=== PATIENT | male | born 1940 | race Caucasian/White ===

== ENCOUNTER → 2016-10-28 | Outpatient (CLI) | payer MEDICARE | LOC: CARL-LAB 08:52 | DX: I48.91 Unspecified atrial fibrillation (principal) ==

== ENCOUNTER → 2016-12-01 | Outpatient (CLI) | payer MEDICARE | LOC: CARL-LAB 07:37 | DX: I48.91 Unspecified atrial fibrillation (principal); Z79.01 Long term (current) use of anticoagulants; Z51.81 Encounter for therapeutic drug level monitoring ==

== ENCOUNTER → 2016-12-29 | Outpatient (CLI) | payer MEDICARE | LOC: CARL-LAB 08:32 | DX: I48.91 Unspecified atrial fibrillation (principal); Z79.01 Long term (current) use of anticoagulants; Z51.81 Encounter for therapeutic drug level monitoring ==

== ENCOUNTER → 2017-01-29 | Outpatient (CLI) | payer MEDICARE | LOC: CARL-LAB 08:34 | DX: I48.91 Unspecified atrial fibrillation (principal); Z79.01 Long term (current) use of anticoagulants; Z51.81 Encounter for therapeutic drug level monitoring ==